=== PATIENT | male | born 1965 | race Caucasian/White ===

== ENCOUNTER 2018-04-04 15:23 | Inpatient (IN) | payer MEDICARE, MEDICAID ==
[~2018-04-04] VITALS: Ht 182.9 cm; Wt 116.9 kg
[~2018-04-04 15:23] MED LIST: AMLO-511 PO; BENZ1TAB10 PO; DIVA500T52 PO; DOCU100C34 PO; HALOD50I IM; PARO20TA24 PO; QUET300T2 PO
[2018-04-04 16:09] LABS: BASOPHILS % (AUTO) 1.3 % (0.0-2.0); EOSINOPHILS % (AUTO) 3.2 % (1.0-6.0); HEMATOCRIT 40.2 % (41-53); HEMOGLOBIN 13.5 g/dL (13.5-17.5); LYMPHOCYTES # (AUTO) 2.7 K/uL (1.0-4.8); LYMPHOCYTES % (AUTO) 32.5 % (22.0-44.0); MEAN CORPUSCULAR HEMOGLOBIN 26.7 pg (26.0-34.0); MEAN CORPUSCULAR HGB CONC 33.5 G/dL (31.0-37.0); MEAN CORPUSCULAR VOLUME 80 fL (80-100); MONOCYTES # (AUTO) 0.6 K/uL (0.1-1.0); MONOCYTES % (AUTO) 7.1 % (2.0-9.0); NEUTROPHILS # (AUTO) 4.7 K/uL (1.8-7.7); NEUTROPHILS % (AUTO) 55.9 % (40.0-70.0); PLATELET COUNT (AUTO) 286 K/uL (150-450); RED BLOOD CELL COUNT(AUTO) 5.05 MIL/uL (4.50-5.90); RED CELL DISTRIBUTION WIDTH 14.9 % (11.5-14.5)
[2018-04-04 16:21] LABS: ANION GAP 6 mmol/L (8-16); CALCIUM, TOTAL 8.6 mg/dL (8.8-10.5); CARBON DIOXIDE 31 mmol/L (22-29); CHLORIDE 101 mmol/L (98-107); CREATININE 0.95 mg/dL (0.60-1.30); GLOMERULAR FILTR. RATE CALC > 60 mL/min (>60); GLUCOSE,RANDOM 86 mg/dL (70-110); SODIUM SERUM 138 mmol/L (136-145); UREA NITROGEN, BLOOD 13 mg/dL (7-18)
[2018-04-04 16:27] LABS: ALANINE AMINOTRANSFERASE 29 U/L (12-78); ALKALINE PHOSPHATASE 51 U/L (46-116); ASPARTATE AMINOTRANSFERASE 20 U/L (15-37); BILIRUBIN,TOTAL 0.3 mg/dL (0.1-1.0); TOTAL PROTEIN, SERUM 7.6 g/dL (6.4-8.2); VALPROIC ACID 53 mcg/mL (50-100)
[2018-04-04 16:41] LABS: AMPHET/METH SCREEN,URINE NEGATIVE (NEGATIVE); BARBITURATE SCREEN, URINE NEGATIVE (NEGATIVE); BENZODIAZEPINES SCREEN,URINE NEGATIVE (NEGATIVE); CANNABINOID SCREEN,URINE POSITIVE (NEGATIVE); COCAINE SCREEN,URINE NEGATIVE (NEGATIVE); METHADONE SCREEN, URINE NEGATIVE (NEGATIVE); OPIATE SCREEN,URINE NEGATIVE (NEGATIVE)
[2018-04-04 16:42] LABS: PHENCYCLIDINE SCREEN,URINE NEGATIVE (NEGATIVE)
[2018-04-04] MEDS ORDERED: ZOLPIDEM TARTRATE 10 MG TABLET PO PRN (18:45)
[2018-04-05 01:43] VITALS: BP 119/74
[2018-04-05 08:17] VITALS: BP 108/62
[2018-04-05] MEDS: NICOTINE 21 MG/24 HOUR PATCH TD SCH (14:46)
[2018-04-05 16:00] VITALS: BP 110/68
[2018-04-05] MEDS: LORazepam 2 MG TABLET PO PRN (16:44)
[2018-04-05] MEDS: HALOPERIDOL 5 MG TABLET PO PRN (16:44)
[2018-04-05] MEDS: QUEtiapine FUMARATE 300 MG TABLET PO SCH (20:25)
[2018-04-05] MEDS: DIVALPROEX SODIUM 500 MG DR TABLET PO SCH (20:25)
[2018-04-06] MEDS ORDERED: ALBUTEROL SULFATE HFA 90 MCG/PUFF 8 GM INHALER IH PRN (00:15)
[2018-04-06] MEDS ORDERED: PETROLATUM,WHITE 71 GM JELLY TP PRN (00:15)
[2018-04-06] MEDS ORDERED: BENZOCAINE/MENTHOL LOZENGE MM PRN (00:15)
[2018-04-06] MEDS ORDERED: MAGNESIUM HYDROXIDE SUSPENSION 30 ML UDCUP PO PRN (00:15)
[2018-04-06] MEDS ORDERED: IBUPROFEN 600 MG TABLET PO PRN (00:15)
[2018-04-06] MEDS ORDERED: LOPERAMIDE HCL 2 MG CAPSULE PO PRN (00:15)
[2018-04-06] MEDS ORDERED: MAG HYDROX/AL HYDROX/SIMETH ES 30 ML SUSPENSION UDCUP PO PRN (00:15)
[2018-04-06] MEDS ORDERED: ONDANSETRON HCL 4 MG TABLET PO PRN (00:15)
[2018-04-06] MEDS ORDERED: CloNIDine HCL 0.1 MG TABLET PO PRN (00:15)
[2018-04-06] MEDS ORDERED: BACITRACIN 28.4 GM OINTMENT TP PRN (00:15)
[2018-04-06] MEDS ORDERED: ACETAMINOPHEN 325 MG TABLET PO PRN (00:15)
[2018-04-06 06:25] VITALS: BP 132/83
[2018-04-06] MEDS: NICOTINE 21 MG/24 HOUR PATCH TD SCH (08:27)
[2018-04-06] MEDS: OMEPRAZOLE 20 MG CAPSULE PO SCH (08:27)
[2018-04-06] MEDS: DIVALPROEX SODIUM 500 MG DR TABLET PO SCH ×2 (08:27→20:46)
[2018-04-06] MEDS: DOCUSATE SODIUM 100 MG CAPSULE PO SCH (08:27)
[2018-04-06] MEDS: PARoxetine HCL 20 MG TABLET PO SCH (08:27)
[2018-04-06 08:37] VITALS: BP 101/67
[2018-04-06 09:06] LABS: BAND NEUTROPHILS % (MANUAL) 0 % (0-5)
[2018-04-06 09:11] LABS: HEMATOCRIT 40.4 % (41-53); HEMOGLOBIN 13.5 g/dL (13.5-17.5); MEAN CORPUSCULAR HEMOGLOBIN 26.7 pg (26.0-34.0); MEAN CORPUSCULAR HGB CONC 33.4 G/dL (31.0-37.0); MEAN CORPUSCULAR VOLUME 80 fL (80-100); PLATELET COUNT (AUTO) 297 K/uL (150-450); RED BLOOD CELL COUNT(AUTO) 5.06 MIL/uL (4.50-5.90); RED CELL DISTRIBUTION WIDTH 14.9 % (11.5-14.5)
[2018-04-06 09:59] LABS: ANION GAP 8 mmol/L (8-16); CALCIUM, TOTAL 8.2 mg/dL (8.8-10.5); CARBON DIOXIDE 27 mmol/L (22-29); CHLORIDE 104 mmol/L (98-107); CHOLESTEROL 156 mg/dL (131-200); CREATININE 0.93 mg/dL (0.60-1.30); FREE T4 (FREE THYROXINE) 0.63 ng/dL (0.76-1.46); GLOMERULAR FILTR. RATE CALC > 60 mL/min (>60); GLUCOSE,RANDOM 81 mg/dL (70-110); HDL CHOLESTEROL 31 mg/dL (40-60); LDL CHOL (CALC.) 105 mg/dL (0-130); POTASSIUM 4.4 mmol/L (3.5-5.1); SODIUM SERUM 139 mmol/L (136-145); THYROID STIMULATING HORMONE 1.72 uIU/mL (0.36-3.74); TRIGLYCERIDES 98 mg/dL (15-150); UREA NITROGEN, BLOOD 15 mg/dL (7-18)
[2018-04-06 10:27] LABS: BASOPHILS % (MANUAL) 1 % (0-2); EOSINOPHILS % (MANUAL) 3 % (1-6); LYMPHOCYTES % (MANUAL) 30 % (22-44); MONOCYTES % (MANUAL) 10 % (2-9); SEGMENTED NEUTROPHILS % 56 % (40-70)
[2018-04-06] MEDS: LORazepam 2 MG TABLET PO PRN (12:48)
[2018-04-06 16:05] VITALS: BP 128/69
[2018-04-06] MEDS: HALOPERIDOL 5 MG TABLET PO PRN (16:17)
[2018-04-06] MEDS: QUEtiapine FUMARATE 300 MG TABLET PO SCH (20:46)
[2018-04-07 06:18] VITALS: BP 106/67
[2018-04-07 08:26] VITALS: BP 106/71
[2018-04-07] MEDS: DOCUSATE SODIUM 100 MG CAPSULE PO SCH (08:28)
[2018-04-07] MEDS: OMEPRAZOLE 20 MG CAPSULE PO SCH (08:28)
[2018-04-07] MEDS: PARoxetine HCL 20 MG TABLET PO SCH (08:28)
[2018-04-07] MEDS: NICOTINE 21 MG/24 HOUR PATCH TD SCH (08:28)
[2018-04-07] MEDS: HALOPERIDOL 5 MG TABLET PO PRN ×2 (08:28→17:01)
[2018-04-07] MEDS: DIVALPROEX SODIUM 500 MG DR TABLET PO SCH ×2 (08:28→20:40)
[2018-04-07] MEDS: LORazepam 2 MG TABLET PO PRN ×2 (08:28→17:01)
[2018-04-07] MEDS ORDERED: PALIPERIDONE PALMITATE 234 MG/1.5 ML SYRINGE IM SCH (10:00)
[2018-04-07] MEDS: QUEtiapine FUMARATE 100 MG TABLET PO SCH ×2 (10:13→17:01)
[2018-04-07 16:07] VITALS: BP 118/75
[2018-04-07] MEDS: QUEtiapine FUMARATE 200 MG TABLET PO SCH (20:40)
[2018-04-08 06:16] VITALS: BP 112/77
[2018-04-08 08:08] VITALS: BP 110/68
[2018-04-08] MEDS: QUEtiapine FUMARATE 100 MG TABLET PO SCH ×2 (08:21→16:29)
[2018-04-08] MEDS: OMEPRAZOLE 20 MG CAPSULE PO SCH (08:21)
[2018-04-08] MEDS: DOCUSATE SODIUM 100 MG CAPSULE PO SCH (08:21)
[2018-04-08] MEDS: PARoxetine HCL 20 MG TABLET PO SCH (08:21)
[2018-04-08] MEDS: DIVALPROEX SODIUM 500 MG DR TABLET PO SCH ×2 (08:21→20:23)
[2018-04-08] MEDS: NICOTINE 21 MG/24 HOUR PATCH TD SCH (08:21)
[2018-04-08] MEDS: LORazepam 2 MG TABLET PO PRN (14:35)
[2018-04-08 16:24] VITALS: BP 108/74
[2018-04-08] MEDS: QUEtiapine FUMARATE 200 MG TABLET PO SCH (20:24)
[2018-04-09 01:15] VITALS: BP 118/70
[2018-04-09 08:32] VITALS: BP 143/93
[2018-04-09] MEDS: DOCUSATE SODIUM 100 MG CAPSULE PO SCH (08:55)
[2018-04-09] MEDS: OMEPRAZOLE 20 MG CAPSULE PO SCH (08:55)
[2018-04-09] MEDS: PARoxetine HCL 20 MG TABLET PO SCH (08:55)
[2018-04-09] MEDS: NICOTINE 21 MG/24 HOUR PATCH TD SCH (08:55)
[2018-04-09] MEDS: QUEtiapine FUMARATE 100 MG TABLET PO SCH ×2 (08:55→16:31)
[2018-04-09] MEDS: DIVALPROEX SODIUM 500 MG DR TABLET PO SCH ×2 (08:55→20:24)
[2018-04-09] MEDS: LORazepam 2 MG TABLET PO PRN ×2 (08:59→16:31)
[2018-04-09 16:18] VITALS: BP 145/91
[2018-04-09] MEDS: QUEtiapine FUMARATE 200 MG TABLET PO SCH (20:23)
[2018-04-10 03:41] VITALS: BP 129/72
[2018-04-10 08:06] VITALS: BP 138/81
[2018-04-10] MEDS: DOCUSATE SODIUM 100 MG CAPSULE PO SCH (08:35)
[2018-04-10] MEDS: NICOTINE 21 MG/24 HOUR PATCH TD SCH (08:36)
[2018-04-10] MEDS: DIVALPROEX SODIUM 500 MG DR TABLET PO SCH ×2 (08:36→20:58)
[2018-04-10] MEDS: PARoxetine HCL 20 MG TABLET PO SCH ×2 (08:36→09:00)
[2018-04-10] MEDS: QUEtiapine FUMARATE 100 MG TABLET PO SCH ×2 (08:36→17:04)
[2018-04-10] MEDS: OMEPRAZOLE 20 MG CAPSULE PO SCH (08:36)
[2018-04-10 16:08] VITALS: BP 136/84
[2018-04-10] MEDS: LORazepam 2 MG TABLET PO PRN (17:04)
[2018-04-10] MEDS: QUEtiapine FUMARATE 200 MG TABLET PO SCH (20:58)
[2018-04-11 06:27] VITALS: BP 130/86
[2018-04-11 08:40] VITALS: BP 113/75
[2018-04-11] MEDS: DIVALPROEX SODIUM 500 MG DR TABLET PO SCH ×2 (09:33→20:30)
[2018-04-11] MEDS: LORazepam 2 MG TABLET PO PRN (09:33)
[2018-04-11] MEDS: HALOPERIDOL 5 MG TABLET PO PRN (09:33)
[2018-04-11] MEDS: QUEtiapine FUMARATE 100 MG TABLET PO SCH ×2 (09:33→16:27)
[2018-04-11] MEDS: DOCUSATE SODIUM 100 MG CAPSULE PO SCH (09:33)
[2018-04-11] MEDS: OMEPRAZOLE 20 MG CAPSULE PO SCH (09:33)
[2018-04-11] MEDS: CHOLECALCIFEROL (VIT D3) 1,000 UNITS TABLET PO SCH (09:33)
[2018-04-11] MEDS: PARoxetine HCL 20 MG TABLET PO SCH (09:34)
[2018-04-11] MEDS: NICOTINE 21 MG/24 HOUR PATCH TD SCH (09:34)
[2018-04-11 16:00] VITALS: BP 112/70
[2018-04-11] MEDS: QUEtiapine FUMARATE 200 MG TABLET PO SCH (20:30)
[2018-04-12 06:47] VITALS: BP 120/77
[2018-04-12 08:06] VITALS: BP 134/89
[2018-04-12] MEDS: DOCUSATE SODIUM 100 MG CAPSULE PO SCH (09:01)
[2018-04-12] MEDS: CHOLECALCIFEROL (VIT D3) 1,000 UNITS TABLET PO SCH (09:01)
[2018-04-12] MEDS: PARoxetine HCL 20 MG TABLET PO SCH (09:01)
[2018-04-12] MEDS: QUEtiapine FUMARATE 100 MG TABLET PO SCH ×2 (09:01→16:32)
[2018-04-12] MEDS: OMEPRAZOLE 20 MG CAPSULE PO SCH (09:02)
[2018-04-12] MEDS: DIVALPROEX SODIUM 500 MG DR TABLET PO SCH (09:02)
[2018-04-12] MEDS: NICOTINE 21 MG/24 HOUR PATCH TD SCH (09:02)
[2018-04-12] MEDS ORDERED: PALI234D IM ×2 (13:01→14:22)
[2018-04-12] MEDS ORDERED: QUET200T29 PO (13:01)
[2018-04-12] MEDS ORDERED: QUET100T33 PO (13:01)
[2018-04-12] MEDS ORDERED: PARO-37 PO (13:01)
[2018-04-12] MEDS ORDERED: DIVA500T35 PO ×2 (13:01)
[2018-04-12] MEDS ORDERED: QUET100T PO (14:20)
[2018-04-12] MEDS ORDERED: OMEP20 PO (14:25)
[2018-04-12] MEDS ORDERED: VITAD1000 PO (14:25)
[2018-04-12 16:00] VITALS: BP 108/63
== END 2018-04-12 17:30 | disposition home or self-care (01) | DRG 885 ==
LOC: EMS 15:25 → B3A 19:44
DX: F25.1 Schizoaffective disorder, depressive type (principal); R45.851 Suicidal ideations; F17.210 Nicotine dependence, cigarettes, uncomplicated; F12.10 Cannabis abuse, uncomplicated; K59.00 Constipation, unspecified; J44.9 Chronic obstructive pulmonary disease, unspecified; F31.9 Bipolar disorder, unspecified; I10 Essential (primary) hypertension; E55.9 Vitamin D deficiency, unspecified; E66.9 Obesity, unspecified; Z59.0 Homelessness; Z79.899 Other long term (current) drug therapy; Z79.51 Long term (current) use of inhaled steroids; Z91.5 Personal history of self-harm; Z68.35 Body mass index [BMI] 35.0-35.9, adult; Z71.51 Drug abuse counseling and surveillance of drug abuser; Z71.6 Tobacco abuse counseling
CPT/HCPCS: 82306; 83735; 84100; 84439; 84443; 85007; 99285; G0480

== ENCOUNTER 2021-04-24 01:06 | Inpatient (IN) | payer MEDICARE, MEDICAID ==
[~2021-04-24] VITALS: Ht 182.9 cm; Wt 104.3 kg
[~2021-04-24 01:06] MED LIST changes: -AMLO-511 PO; -BENZ1TAB10 PO; +CHOL100018 PO; +DIVA-112 PO; +DIVA-80 PO; -DIVA500T52 PO; -DOCU100C34 PO; -HALOD50I IM; +OMEP20 PO; +PALI234D IM; +PARO-37 PO; +PARO-38 PO; -PARO20TA24 PO; +QUET100T PO; +QUET100T33 PO; +QUET200T29 PO
[2021-04-24] MEDS ORDERED: ZOLPIDEM TARTRATE 10 MG TABLET PO PRN (03:15)
[2021-04-24] MEDS ORDERED: HALOPERIDOL 5 MG TABLET PO PRN (03:15)
[2021-04-24] MEDS ORDERED: LORazepam 2 MG TABLET PO PRN (03:15)
[2021-04-24 04:16] VITALS: BP 125/75
[2021-04-24] MEDS ORDERED: PNEUMOCOCCAL VACCINE POLYVALENT 0.5 ML VIAL [PPSV23] IM. ONE (05:45)
[2021-04-24] MEDS ORDERED: ALBUTEROL SULFATE HFA 90 MCG/PUFF 8 GM INHALER IH PRN (07:00)
[2021-04-24] MEDS ORDERED: ONDANSETRON HCL 4 MG TABLET PO PRN (07:00)
[2021-04-24] MEDS ORDERED: CloNIDine HCL 0.1 MG TABLET PO PRN (07:00)
[2021-04-24] MEDS ORDERED: DOCUSATE SODIUM 100 MG CAPSULE PO PRN (07:00)
[2021-04-24] MEDS ORDERED: MAG HYDROX/AL HYDROX/SIMETH ES 30 ML SUSPENSION UDCUP PO PRN (07:00)
[2021-04-24] MEDS ORDERED: MAGNESIUM HYDROXIDE SUSPENSION 30 ML UDCUP PO PRN (07:00)
[2021-04-24] MEDS ORDERED: LOPERAMIDE HCL 2 MG CAPSULE PO PRN (07:00)
[2021-04-24] MEDS ORDERED: PETROLATUM,WHITE 28 GM JELLY TP PRN (07:00)
[2021-04-24] MEDS ORDERED: ACETAMINOPHEN 325 MG TABLET PO PRN (07:00)
[2021-04-24] MEDS ORDERED: GuaiFENesin/D-METHORPHAN [SUGAR-FREE] 200-20MG/10 ML SYRUP UDCUP PO PRN (07:00)
[2021-04-24] MEDS ORDERED: IBUPROFEN 400 MG TABLET PO PRN (07:00)
[2021-04-24] MEDS ORDERED: NICOTINE 14 MG/24 HOUR PATCH TD PRN (07:00)
[2021-04-24 08:16] VITALS: BP 136/76
[2021-04-24] MEDS: OMEPRAZOLE 20 MG CAPSULE PO SCH (08:49)
[2021-04-24] MEDS: CHOLECALCIFEROL (VIT D3) 1,000 UNITS [25 MCG] TABLET PO SCH (08:49)
[2021-04-24] MEDS ORDERED: CHOL100044 PO (13:31)
[2021-04-24] MEDS ORDERED: QUET200T PO (13:31)
[2021-04-24 16:12] VITALS: BP 140/81
[2021-04-24] MEDS: QUEtiapine FUMARATE 100 MG TABLET PO SCH (16:41)
[2021-04-24] MEDS ORDERED: QUEtiapine FUMARATE 50 MG ER TABLET PO SCH (17:00)
[2021-04-24] MEDS: QUEtiapine FUMARATE 200 MG TABLET PO SCH (20:09)
[2021-04-24] MEDS: DIVALPROEX SODIUM 500 MG ER TABLET PO SCH (20:10)
[2021-04-24] MEDS ORDERED: QUEtiapine FUMARATE 200 MG ER TABLET PO SCH (21:00)
[2021-04-25 00:12] VITALS: BP 129/78
[2021-04-25 08:12] VITALS: BP 103/70
[2021-04-25] MEDS: OMEPRAZOLE 20 MG CAPSULE PO SCH (08:44)
[2021-04-25] MEDS: CHOLECALCIFEROL (VIT D3) 1,000 UNITS [25 MCG] TABLET PO SCH (08:44)
[2021-04-25] MEDS: QUEtiapine FUMARATE 100 MG TABLET PO SCH ×2 (08:44→16:52)
[2021-04-25] MEDS: DIVALPROEX SODIUM 500 MG ER TABLET PO SCH ×2 (08:44→20:35)
[2021-04-25] MEDS: PARoxetine HCL 20 MG TABLET PO SCH (08:45)
[2021-04-25 16:07] VITALS: BP 127/75
[2021-04-25] MEDS: QUEtiapine FUMARATE 200 MG TABLET PO SCH (20:34)
[2021-04-26 01:22] VITALS: BP 125/87
[2021-04-26 07:50] LABS: BASOPHILS % (AUTO) 0.6 % (0.0-2.0); EOSINOPHILS % (AUTO) 2.1 % (1.0-6.0); HEMATOCRIT 41.3 % (41-53); HEMOGLOBIN 13.3 g/dL (13.5-17.5); LYMPHOCYTES # (AUTO) 2.2 K/uL (1.0-4.8); LYMPHOCYTES % (AUTO) 26.7 % (22.0-44.0); MEAN CORPUSCULAR HEMOGLOBIN 25.2 pg (26.0-34.0); MEAN CORPUSCULAR HGB CONC 32.3 G/dL (31.0-37.0); MEAN CORPUSCULAR VOLUME 78 fL (80-100); MONOCYTES # (AUTO) 0.7 K/uL (0.1-1.0); MONOCYTES % (AUTO) 8.3 % (2.0-9.0); NEUTROPHILS # (AUTO) 5.1 K/uL (1.8-7.7); NEUTROPHILS % (AUTO) 62.3 % (40.0-70.0); PLATELET COUNT (AUTO) 300 K/uL (150-450); RED BLOOD CELL COUNT(AUTO) 5.29 MIL/uL (4.50-5.90); RED CELL DISTRIBUTION WIDTH 15.4 % (11.5-14.5)
[2021-04-26 08:15] LABS: HEMOGLOBIN A1C 5.6 % (3.8-5.6)
[2021-04-26 08:17] LABS: ALANINE AMINOTRANSFERASE 25 U/L (12-78); ALBUMIN 3.4 g/dL (3.4-5.0); ALKALINE PHOSPHATASE 64 U/L (46-116); ANION GAP 8 mmol/L (8-16); ASPARTATE AMINOTRANSFERASE 14 U/L (15-37); BILIRUBIN,TOTAL 0.7 mg/dL (0.1-1.0); CALCIUM, TOTAL 8.5 mg/dL (8.8-10.5); CARBON DIOXIDE 25 mmol/L (22-29); CHLORIDE 104 mmol/L (98-107); CHOL/HDL RATIO 4.3 (4.2-7.3); CHOLESTEROL 166 mg/dL (131-200); CREATININE 0.82 mg/dL (0.60-1.30); FREE T4 (FREE THYROXINE) 0.81 ng/dL (0.76-1.46); GLOMERULAR FILTR. RATE CALC > 60 mL/min (>60); GLUCOSE,RANDOM 85 mg/dL (70-110); HDL CHOLESTEROL 39 mg/dL (40-60); LDL CHOL (CALC.) 115 mg/dL (0-130); POTASSIUM 4.1 mmol/L (3.5-5.1); SODIUM SERUM 137 mmol/L (136-145); TRIGLYCERIDES 58 mg/dL (15-150); UREA NITROGEN, BLOOD 15 mg/dL (7-18)
[2021-04-26] MEDS: QUEtiapine FUMARATE 100 MG TABLET PO SCH ×2 (08:27→16:28)
[2021-04-26] MEDS: PARoxetine HCL 20 MG TABLET PO SCH (08:27)
[2021-04-26] MEDS: CHOLECALCIFEROL (VIT D3) 1,000 UNITS [25 MCG] TABLET PO SCH (08:27)
[2021-04-26] MEDS: OMEPRAZOLE 20 MG CAPSULE PO SCH (08:28)
[2021-04-26] MEDS: DIVALPROEX SODIUM 500 MG ER TABLET PO SCH ×2 (08:28→20:20)
[2021-04-26 08:52] VITALS: BP 123/67
[2021-04-26 17:27] VITALS: BP 127/86
[2021-04-26] MEDS: QUEtiapine FUMARATE 200 MG TABLET PO SCH (20:20)
[2021-04-27 01:38] VITALS: BP 128/82
[2021-04-27 08:05] VITALS: BP 118/76
[2021-04-27] MEDS: OMEPRAZOLE 20 MG CAPSULE PO SCH (08:32)
[2021-04-27] MEDS: QUEtiapine FUMARATE 100 MG TABLET PO SCH ×2 (08:32→16:31)
[2021-04-27] MEDS: CHOLECALCIFEROL (VIT D3) 1,000 UNITS [25 MCG] TABLET PO SCH (08:32)
[2021-04-27] MEDS: DIVALPROEX SODIUM 500 MG ER TABLET PO SCH ×2 (08:32→20:40)
[2021-04-27] MEDS: PARoxetine HCL 20 MG TABLET PO SCH (08:32)
[2021-04-27 16:06] VITALS: BP 108/62
[2021-04-27] MEDS: QUEtiapine FUMARATE 200 MG TABLET PO SCH (20:40)
[2021-04-28 00:27] VITALS: BP 113/76
[2021-04-28] MEDS: PARoxetine HCL 20 MG TABLET PO SCH (08:00)
[2021-04-28] MEDS: OMEPRAZOLE 20 MG CAPSULE PO SCH (08:00)
[2021-04-28] MEDS: DIVALPROEX SODIUM 500 MG ER TABLET PO SCH ×2 (08:00→20:09)
[2021-04-28] MEDS: QUEtiapine FUMARATE 100 MG TABLET PO SCH ×2 (08:00→17:08)
[2021-04-28] MEDS: CHOLECALCIFEROL (VIT D3) 1,000 UNITS [25 MCG] TABLET PO SCH (08:00)
[2021-04-28 08:17] VITALS: BP 120/80
[2021-04-28 17:58] VITALS: BP 105/68
[2021-04-28] MEDS: QUEtiapine FUMARATE 200 MG TABLET PO SCH (20:09)
[2021-04-29 05:34] VITALS: BP 117/74
[2021-04-29 08:23] VITALS: BP 137/82
[2021-04-29 08:26] LABS: COVID AG,FIA SOURCE NASOPHARYNGEAL
[2021-04-29] MEDS: OMEPRAZOLE 20 MG CAPSULE PO SCH (08:47)
[2021-04-29] MEDS: QUEtiapine FUMARATE 100 MG TABLET PO SCH ×2 (08:47→16:28)
[2021-04-29] MEDS: DIVALPROEX SODIUM 500 MG ER TABLET PO SCH ×2 (08:47→20:20)
[2021-04-29] MEDS: CHOLECALCIFEROL (VIT D3) 1,000 UNITS [25 MCG] TABLET PO SCH (08:47)
[2021-04-29] MEDS: PARoxetine HCL 20 MG TABLET PO SCH (08:48)
[2021-04-29 16:04] VITALS: BP 110/83
[2021-04-29] MEDS: QUEtiapine FUMARATE 200 MG TABLET PO SCH (20:20)
[2021-04-30 00:34] VITALS: BP 104/62
[2021-04-30] MEDS: PARoxetine HCL 20 MG TABLET PO SCH (08:10)
[2021-04-30] MEDS: DIVALPROEX SODIUM 500 MG ER TABLET PO SCH ×2 (08:11→20:31)
[2021-04-30] MEDS: CHOLECALCIFEROL (VIT D3) 1,000 UNITS [25 MCG] TABLET PO SCH (08:11)
[2021-04-30] MEDS: QUEtiapine FUMARATE 100 MG TABLET PO SCH ×2 (08:11→16:04)
[2021-04-30] MEDS: OMEPRAZOLE 20 MG CAPSULE PO SCH (08:11)
[2021-04-30 08:19] VITALS: BP 109/69
[2021-04-30 16:25] VITALS: BP 114/68
[2021-04-30] MEDS: QUEtiapine FUMARATE 200 MG TABLET PO SCH (20:31)
[2021-05-01 04:34] VITALS: BP 113/71
[2021-05-01 08:20] VITALS: BP 128/85
[2021-05-01] MEDS: PARoxetine HCL 20 MG TABLET PO SCH (08:50)
[2021-05-01] MEDS: QUEtiapine FUMARATE 100 MG TABLET PO SCH ×2 (08:51→16:27)
[2021-05-01] MEDS: OMEPRAZOLE 20 MG CAPSULE PO SCH (08:51)
[2021-05-01] MEDS: CHOLECALCIFEROL (VIT D3) 1,000 UNITS [25 MCG] TABLET PO SCH (08:51)
[2021-05-01] MEDS: DIVALPROEX SODIUM 500 MG ER TABLET PO SCH ×2 (08:56→20:46)
[2021-05-01 16:17] VITALS: BP 127/80
[2021-05-01] MEDS: QUEtiapine FUMARATE 200 MG TABLET PO SCH (20:45)
[2021-05-02 00:11] VITALS: BP 121/72
[2021-05-02] MEDS: DIVALPROEX SODIUM 500 MG ER TABLET PO SCH ×2 (08:27→20:38)
[2021-05-02] MEDS: OMEPRAZOLE 20 MG CAPSULE PO SCH (08:28)
[2021-05-02] MEDS: MULTIVITAMINS WITH MINERALS, THERAPEUTIC TABLET PO SCH (08:28)
[2021-05-02] MEDS: QUEtiapine FUMARATE 100 MG TABLET PO SCH ×2 (08:28→16:57)
[2021-05-02] MEDS: CHOLECALCIFEROL (VIT D3) 1,000 UNITS [25 MCG] TABLET PO SCH (08:28)
[2021-05-02] MEDS: PARoxetine HCL 20 MG TABLET PO SCH (08:28)
[2021-05-02 09:08] VITALS: BP 132/64
[2021-05-02 16:20] VITALS: BP 105/68
[2021-05-02] MEDS: QUEtiapine FUMARATE 200 MG TABLET PO SCH (20:37)
[2021-05-03 00:32] VITALS: BP 117/76
[2021-05-03 08:06] VITALS: BP 119/69
[2021-05-03] MEDS: CHOLECALCIFEROL (VIT D3) 1,000 UNITS [25 MCG] TABLET PO SCH (09:03)
[2021-05-03] MEDS: PARoxetine HCL 20 MG TABLET PO SCH (09:03)
[2021-05-03] MEDS: MULTIVITAMINS WITH MINERALS, THERAPEUTIC TABLET PO SCH (09:04)
[2021-05-03] MEDS: OMEPRAZOLE 20 MG CAPSULE PO SCH (09:04)
[2021-05-03] MEDS: QUEtiapine FUMARATE 100 MG TABLET PO SCH ×2 (09:04→16:34)
[2021-05-03] MEDS: DIVALPROEX SODIUM 500 MG ER TABLET PO SCH ×2 (09:04→21:36)
[2021-05-03 16:14] VITALS: BP 119/84
[2021-05-03] MEDS: QUEtiapine FUMARATE 200 MG TABLET PO SCH (21:36)
[2021-05-04 08:24] VITALS: BP 120/88
[2021-05-04] MEDS: CHOLECALCIFEROL (VIT D3) 1,000 UNITS [25 MCG] TABLET PO SCH (09:55)
[2021-05-04] MEDS: MULTIVITAMINS WITH MINERALS, THERAPEUTIC TABLET PO SCH (09:56)
[2021-05-04] MEDS: DIVALPROEX SODIUM 500 MG ER TABLET PO SCH ×2 (09:56→20:53)
[2021-05-04] MEDS: QUEtiapine FUMARATE 100 MG TABLET PO SCH ×2 (09:56→16:50)
[2021-05-04] MEDS: PARoxetine HCL 20 MG TABLET PO SCH (09:56)
[2021-05-04] MEDS: OMEPRAZOLE 20 MG CAPSULE PO SCH (09:56)
[2021-05-04 16:14] VITALS: BP 128/88
[2021-05-04] MEDS: QUEtiapine FUMARATE 200 MG TABLET PO SCH (20:53)
[2021-05-05 00:18] VITALS: BP 116/71
[2021-05-05 08:47] VITALS: BP 127/75
[2021-05-05] MEDS: QUEtiapine FUMARATE 100 MG TABLET PO SCH ×2 (09:17→16:48)
[2021-05-05] MEDS: OMEPRAZOLE 20 MG CAPSULE PO SCH (09:17)
[2021-05-05] MEDS: MULTIVITAMINS WITH MINERALS, THERAPEUTIC TABLET PO SCH (09:17)
[2021-05-05] MEDS: CHOLECALCIFEROL (VIT D3) 1,000 UNITS [25 MCG] TABLET PO SCH (09:18)
[2021-05-05] MEDS: DIVALPROEX SODIUM 500 MG ER TABLET PO SCH (09:18)
[2021-05-05] MEDS: PARoxetine HCL 20 MG TABLET PO SCH (09:18)
[2021-05-05 16:14] VITALS: BP 118/81
== END 2021-05-05 18:15 | disposition home or self-care (01) | DRG 885 ==
LOC: B2X 03:10
PROVIDERS: ADMIT Psychiatry & Neurology Psychiatry; ATTEND Psychiatry & Neurology Psychiatry
DX: F33.2 Major depressive disorder, recurrent severe without psychotic features (principal); R45.851 Suicidal ideations; E55.9 Vitamin D deficiency, unspecified; F41.0 Panic disorder [episodic paroxysmal anxiety]; D64.9 Anemia, unspecified; I10 Essential (primary) hypertension; J44.9 Chronic obstructive pulmonary disease, unspecified; Z20.822 Contact with and (suspected) exposure to COVID-19; E66.9 Obesity, unspecified; Z28.21 Immunization not carried out because of patient refusal; Z68.31 Body mass index [BMI] 31.0-31.9, adult; Z59.0 Homelessness; Z79.899 Other long term (current) drug therapy; Z98.49 Cataract extraction status, unspecified eye
CPT/HCPCS: 80053; 80061; 83036; 84439; 84443; 85025; 90732